=== PATIENT | female | born 1960 | race Caucasian/White ===

== ENCOUNTER 2019-04-20 06:54 | Day surgery (SDC) | payer MEDICARE, OTHER ==
[~2019-04-20 06:54] MED LIST: Lactated Ringers 1,000 ML IV SCH; Lidocaine 1%/Sod Bicarbonate in NS 8.4% 1 ML Syringe IDERM PRN; Sodium Chloride 0.9% 10 ML Syringe FLUSH PRN
--- NOTE | 2019-04-20 07:23 | PCM.PREANE ---
Preanesthetic Assessment - Procedure Proposed Procedure: EGD/Colonoscopy - Anesthesia/Transfusion/Family Hx Anesthesia History: Prior Anesthesia Without Reaction Family History of Anesthesia Reaction: No Transfusion History: No Prior Transfusion(s) - Review of Systems General: No Symptoms Pulmonary: No Symptoms Cardiovascular: Dyspnea on Exertion Gastrointestinal: No Symptoms Neurological: Tingling ("siatica"), Gait Disturbance ("bad foot") Other: Reports: Diabetes (check this am @ 97), Thyroid Problems (hypothyroid) - Physical Assessment NPO Status Date: 04/19/19 NPO Status Time: 00:00 Height: 1.55 m Weight: 99.79 kg ASA Class: 3 Mental Status: Alert & Oriented x3 Airway Class: Mallampati = 2 Dentition: Reports: Dentures Thyro-Mental Finger Breadths: 2 Mouth Opening Finger Breadths: 2 ROM/Head Extension: Full Lungs: Clear to Auscultation, Normal Respiratory Effort Cardiovascular: Regular Rate, Regular Rhythm - Allergies Allergies/Adverse Reactions: Allergies Allergy/AdvReac Type Severity Reaction Status Date / Time adalimumab [From Humira] Allergy Rash Verified 04/19/19 13:43 buspirone [From BuSpar] Allergy Cannot Verified 04/19/19 13:43 Remember cephalexin [From Keflex] Allergy Rash Verified 04/19/19 13:43 codeine Allergy Swelling Verified 04/19/19 13:43 atorvastatin [From Lipitor] AdvReac Muscle Verified 04/19/19 14:27 Aches fenofibrate [From Tricor] AdvReac Muscle Verified 04/19/19 14:27 Aches - Blood Blood Available: No Product(s) Available: None - Anesthesia Plan Pre-Op Medication Ordered: Beta Jose Beta Jose: Metoprolol Med Last Dose Date: 04/20/19 Med Last Dose Time: 05:30 - Acknowledgements Anesthesia Type Planned: MAC Pt an Appropriate Candidate for the Planned Anesthesia: Yes Alternatives and Risks of Anesthesia Discussed w Pt/Guardian: Yes Pt/Guardian Understands and Agrees with Anesthesia Plan: Yes PreAnesthesia Questionnaire HEENT History: Reports: Impaired Vision Cardiovascular History: Reports: CAD, Hypertension, SD Respiratory History: Reports: Sleep Apnea Gastrointestinal History: Reports: GERD, Hemorrhoids, Irritable Bowel Syndrome Genitourinary History: Reports: None 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: Musculoskeletal History: Reports: Osteoarthritis, Other (See Below) Other Musculoskeletal History: osteomyelitis Neurological History: Reports: Other (See Below) Other Neuro History: parkinsons like features Psychiatric History: Reports: Anxiety, Bipolar, Depression Endocrine/Metabolic History: Reports: Diabetes, Type II, Hypothyroidism Hematologic History: Reports: Anemia, Iron Deficiency Immunologic History: Reports: None Oncologic (Cancer) History: Reports: None Dermatologic History: Reports: None - Past Surgical History Head Surgeries/Procedures: Reports: None Cardiovascular Surgical History: Reports: Coronary Artery Bypass Respiratory Surgical History: Reports: None GI Surgical History: Reports: Colonoscopy, EGD Female Surgical History: Reports: Section Male Surgical History: Reports: None Endocrine Surgical History: Reports: None Neurological Surgical History: Reports: Other (See Below) Other Neurological Surgeries/Procedures: back surgery Musculoskeletal Surgical History: Reports: Knee Replacement, Other (See Below) Other Musculoskeletal Surgeries/Procedures:: bilateral foot surgery Oncologic Surgical History: Reports: None Dermatological Surgical History: Reports: None - SUBSTANCE USE Smoking Status *Q: Former Smoker Tobacco Use Within Last Twelve Months: No Second Hand Smoke Exposure: No Days Per Week of Alcohol Use: 0 Number of Drinks Per Day: 0 Total Drinks Per Week: 0 Recreational Drug Use History: No - HOME MEDS Home Medications: Home Meds Acetaminophen [Tylenol Arthritis] 650 mg PO Q8H PRN 04/19/19 [History] Aspirin 325 mg PO BID 04/19/19 [History] Calcium Carbonate/Vitamin D3 [Calcium 600 + Vit D 400 Softgl] 1 cap PO DAILY 11/28 [History] Carbidopa/Levodopa [Sinemet 25-100 mg Tablet] 1 each PO DAILY 04/19/19 [History] Dulaglutide [Trulicity] 0.75 mg SQ TH 04/19/19 [History] Escitalopram Oxalate 10 mg PO DAILY 04/19/19 [History] Folic Acid 2 mg PO DAILY 04/19/19 [History] Gabapentin [Neurontin] 600 mg PO TID 04/19/19 [History] Levothyroxine 75 mcg PO DAILY 04/19/19 [History] Losartan Potassium 25 mg PO DAILY 04/19/19 [History] Methotrexate Sodium [Methotrexate] 20 mg PO SA 04/19/19 [History] Metoprolol Tartrate 50 mg PO BID 04/19/19 [History] Multivitamin [Poly-Vitamin] 1 tab PO DAILY 04/19/19 [History] Nitroglycerin [Nitrostat] 0.4 mg PO ASDIRECTED PRN 04/19/19 [History] QUEtiapine Fumarate [Quetiapine Fumarate] 50 mg PO DAILY 04/19/19 [History] Ranitidine HCl [Ranitidine] 300 mg PO DAILY 04/19/19 [History] Rosuvastatin Calcium [Crestor] 40 mg PO BEDTIME 04/19/19 [History] estradioL [Estrace 0.01% Vaginal Crm] 1 dose VAG ASDIRECTED 04/19/19 [History] lamoTRIgine 200 mg PO DAILY 04/19/19 [History] - CURRENT (IN HOUSE) MEDS Current Meds: Current Medications Lactated Ringer's (Ringers, Lactated) 1,000 mls @ 125 mls/hr IV ASDIRECTED REMY Stop: 04/20/19 23:00 Lidocaine/Sodium Bicarbonate (Buffered Lidocaine 1% In Ns 8.4%) 0.25 ml IDERM ONETIME PRN PRN Reason: Prior to IV Start Stop: 04/20/19 18:00 Sodium Chloride (Saline Flush) 10 ml FLUSH ASDIRECTED PRN PRN Reason: Keep Vein Open Stop: 04/20/19 18:00
[2019-04-20] MEDS ORDERED: fentaNYL 100 MCG/2 ML SDV ONE (07:35)
[2019-04-20] MEDS ORDERED: Ondansetron 4 MG/2 ML SDV ONE (07:35)
[2019-04-20] MEDS ORDERED: Midazolam 1 MG/ML 2 ML SDV ONE (07:35)
[2019-04-20] MEDS ORDERED: Propofol 200 MG/20 ML SDV ONE ×3 (07:35→08:49)
[2019-04-20] MEDS ORDERED: Lidocaine 1% 4 ML ONE (07:36)
--- NOTE | 2019-04-20 09:18 | PCM.OPNOTE ---
- General Post-Op/Procedure Note Date of Surgery/Procedure: 04/20/19 Operative Procedure(s): EGD and colonoscopy Findings: 1. Duodenitis 2. Gastritis with superficial erosion and hemorrhage 3. Bile reflux 4. Irregular GE junction 5. Diverticulosis Pre Op Diagnosis: Iron deficiency Post-Op Diagnosis: Same Anesthesia Technique: CHAYITO Primary Surgeon: Cyndi Cole Anesthesia Provider: Tom Wheeler Pathology: 1. Duodenal biopsy 2. Antrum biopsy 3. GE junction biopsy Fluid Replacement, Intraop: 900 Output, Urine Amount: 0 EBL in mLs: 0 Complications: none apparent Condition: Good
--- NOTE | 2019-04-20 09:19 | PCM.PRNOTE ---
- Free Text/Narrative Note: Operative Report Date of Procedure: April 20, 2019 Pre Op Diagnosis: Iron deficiency Post-Op Diagnosis: Same Operative Procedures: 1. EGD with biopsy 2. Colonoscopy to the cecum Primary Surgeon: Cyndi Cole MD Anesthesia Provider: Tom Wheeler CRNA Anesthesia Technique: MAC IV Fluid Replacement, Intraop: 900cc crystalloid Output, Urine Amount: 0cc EBL in mLs: 0cc Findings: 1. Duodenitis 2. Gastritis with superficial erosion and hemorrhage 3. Bile reflux 4. Irregular GE junction 5. Diverticulosis Specimens: 1. Duodenal biopsy 2. Antrum biopsy 3. GE junction biopsy Drain/Tubes: None Indication: The patient is a 59-year-old lady who presented to the clinic with findings of iron deficiency. The patient was consented for a diagnostic EGD and colonoscopy. Risks of bleeding, and perforation were discussed, and the patient agreed to the risks and wished to proceed. Description of the procedure: The patient was taken back to the endoscopy suite, and placed in the left lateral decubitus position. Local anesthetic to the oropharynx was administered , and a bite block was placed. The patient was sedated with MAC anesthesia. The Olympus video endoscope was inserted into the oropharynx and guided under direct vision into the esophagus, stomach, and duodenum. The duodenal bulb and second portion of the duodenum were remarkable for erythema with friability in the duodenal bulb. Biopsies were taken in the second portion of the duodenum and duodenal bulb with a cold biopsy forceps. The gastric antrum was inspected and cold biopsy forceps were used to take tissue samples for H. pylori. There was erythema noted in the antrum and distal body of the stomach consistent with gastritis the scope was withdrawn to the stomach and retroflexed. There was increased bilious fluid consistent with bile reflux, this was suctioned. There were 2 areas of superficial erosion in the cardia of the stomach. There was a small amount of active hemorrhage in these 2 areas. No ulcers were noted. The scope was withdrawn to the esophagus. A this point we did not note any hiatal hernia. The GE junction appeared irregular with tissue changes that looked consistent with inflammation. Biopsies taken at the GE junction in 4 quadrants for histology using a cold biopsy forceps. No specific Barretts esophagus changes were noted. The endoscope was then withdrawn. Next, anorectal examination was performed. No lesions, masses or hemorrhoids were noted externally or on palpation. The scope was placed into the rectum and advanced to cecum. Upon reaching the cecum, and the patients cecum was entered. There was moderate tortuosity of the colon with significant looping of the scope requiring change in patient position to supine and abdominal manual pressure. The ileocecal valve was well visualized and the appendiceal orifice identified. At this point, the scope was slowly withdrawn, paying attention to the mucosa. The patient had adequate bowel prep, 85-90% of the mucosa was visible after washing and suctioning. Diffuse diverticulosis was noted extending into the ascending colon. In the rectum, scope was retroflexed and some hemorrhoidal tissue was noted. The scope was placed back in the lumen and excess air was aspirated. The scope was removed. The patient tolerated the procedure very well. Complications: None apparent Condition: The patient was transported to PACU in stable condition. Cyndi Cole MD General Surgery
--- NOTE | 2019-04-20 09:20 | PCM48HPAN ---
Post Anesthesia Note - EVALUATION WITHIN 48HRS OF ANESTHETIC Vital Signs in Normal Range: Yes Patient Participated in Evaluation: Yes Respiratory Function Stable: Yes Airway Patent: Yes Cardiovascular Function Stable: Yes Hydration Status Stable: Yes Pain Control Satisfactory: Yes Nausea and Vomiting Control Satisfactory: Yes Mental Status Recovered: Yes Vital Signs: Last Vital Signs Temp 36.3 C 04/20/19 07:10 Pulse 63 04/20/19 07:10 Resp 20 04/20/19 07:10 BP 117/81 04/20/19 07:10 Pulse Ox 95 04/20/19 07:10 - COMMENTS/OBSERVATIONS Free Text/Narrative:: no anesthesia complications noted
== END 2019-04-20 10:15 | disposition home or self-care (01) ==
LOC: JD.SDS 06:54
PROVIDERS: ATTEND Surgery
DX: K57.30 Diverticulosis of large intestine without perforation or abscess without bleeding (principal); K29.80 Duodenitis without bleeding; E61.1 Iron deficiency; K25.4 Chronic or unspecified gastric ulcer with hemorrhage; K29.51 Unspecified chronic gastritis with bleeding; K64.9 Unspecified hemorrhoids; K31.89 Other diseases of stomach and duodenum; K22.8 Other specified diseases of esophagus; K21.0 Gastro-esophageal reflux disease with esophagitis; I25.10 Atherosclerotic heart disease of native coronary artery without angina pectoris; I10 Essential (primary) hypertension; E78.2 Mixed hyperlipidemia; E03.9 Hypothyroidism, unspecified; E78.5 Hyperlipidemia, unspecified; M06.9 Rheumatoid arthritis, unspecified; E11.9 Type 2 diabetes mellitus without complications; Z88.5 Allergy status to narcotic agent; Z87.19 Personal history of other diseases of the digestive system; Z88.8 Allergy status to other drugs, medicaments and biological substances; Z88.1 Allergy status to other antibiotic agents; Z79.899 Other long term (current) drug therapy; Z87.891 Personal history of nicotine dependence; Z79.890 Hormone replacement therapy
CPT/HCPCS: 82962; J2001; J2250; J2405; J2704; J3010; J7120

== ENCOUNTER 2020-05-29 23:49 | Emergency (ER) | payer MEDICARE, OTHER ==
--- NOTE | 2020-05-30 00:35 | EDM.PDOC ---
ED HPI GENERAL MEDICAL PROBLEM - General Chief Complaint: Chest Pain Stated Complaint: yon/karol bueno Time Seen by Provider: 05/29/20 23:58 Source of Information: Reports: Patient History Limitations: Reports: No Limitations - History of Present Illness INITIAL COMMENTS - FREE TEXT/NARRATIVE: Mrs. Mcghee is a pleasant 60-year-old woman who is now brought to the ED by EMS after developing sudden-onset entire left upper extremity pain, that radiated to the left side of her neck, along with a headache felt in her left frontal area and left ear, associated with nausea, dyspnea, and diaphoresis, around 22:30 this evening. She states that she took a single sublingual nitroglycerin around 22:40, with complete resolution of her symptoms around 10 minutes later. None of her symptoms have returned. She now feels completely back to normal. The patient states that she had similar symptoms in 2018 that resolved after about an hour, after she went to the ED. She does not know if she received any medications that may have contributed to the resolution of her symptoms. She recalls that she was told that her symptoms were due to anxiety. The patient also reports that she has a history of coronary artery disease, status post an NJ in 2005. At that time, her symptoms included left-sided chest pain that radiated down her entire left upper extremity, however, the patient acknowledges that jessie's symptoms are distinctly different than the symptoms she experienced when she had an NJ in 2006. [facility], the patient's initial BP is found to be slightly elevated at 139/97, otherwise, she was hemodynamically stable, afebrile, saturating 97% on room air. [facility], the patient denies having a recent fever, chills, sore throat, ear pain, nasal or sinus congestion, cough, dyspnea, chest pain, palpitations, nausea, vomiting, constipation, diarrhea, abdominal pain, urinary symptoms, recent weight gain or weight loss, recent bloody bowel movements or black bowel movements, recent joint aches, headaches, or rashes. The patient's PCP is Dr. Navya Maher, from [place]. Her cardiology midlevel is Lilian Clayton NP, who works with Dr. Areli Wilson. Her psychiatric counselor is Tressa Villarreal NP, in [place]. - Related Data Allergies Allergy/AdvReac Type Severity Reaction Status Date / Time adalimumab [From Humira] Allergy Rash Verified 05/29/20 23:52 buspirone [From BuSpar] Allergy Cannot Verified 05/29/20 23:52 Remember cephalexin [From Keflex] Allergy Rash Verified 05/29/20 23:52 codeine Allergy Swelling Verified 05/29/20 23:52 atorvastatin [From Lipitor] AdvReac Muscle Verified 05/29/20 23:52 Aches fenofibrate [From Tricor] AdvReac Muscle Verified 05/29/20 23:52 Aches Home Meds: Home Meds Acetaminophen [Tylenol Arthritis] 650 mg PO Q8H PRN 04/19/19 [History] Aspirin 325 mg PO BID 04/19/19 [History] Calcium Carbonate/Vitamin D3 [Calcium 600Mg-D3 400 Unit Sfgl] 1 cap PO DAILY 04/19/19 [History] Carbidopa/Levodopa [Sinemet 25-100 mg Tablet] 1 each PO DAILY 04/19/19 [History] Dulaglutide [Trulicity] 0.75 mg SQ TH 04/19/19 [History] Escitalopram Oxalate 10 mg PO DAILY 04/19/19 [History] Folic Acid 2 mg PO DAILY 04/19/19 [History] Gabapentin [Neurontin] 600 mg PO TID 04/19/19 [History] Levothyroxine 75 mcg PO DAILY 04/19/19 [History] Losartan Potassium 25 mg PO DAILY 04/19/19 [History] Metoprolol Tartrate 50 mg PO BID 04/19/19 [History] Multivitamin [Poly-Vitamin] 1 tab PO DAILY 04/19/19 [History] Nitroglycerin [Nitrostat] 0.4 mg PO ASDIRECTED PRN 04/19/19 [History] QUEtiapine Fumarate [Quetiapine Fumarate] 50 mg PO DAILY 04/19/19 [History] Ranitidine HCl [Ranitidine] 300 mg PO DAILY 04/19/19 [History] Rosuvastatin Calcium [Crestor] 40 mg PO BEDTIME 04/19/19 [History] estradioL [Estrace 0.01% Vaginal Crm] 1 dose VAG ASDIRECTED 04/19/19 [History] lamoTRIgine 200 mg PO DAILY 04/19/19 [History] metHOTREXate sodium [Methotrexate] 20 mg PO SA 04/19/19 [History] Past Medical History HEENT History: Reports: Impaired Vision (wears glasses) Cardiovascular History: Reports: CAD, High Cholesterol, Hypertension, NJ (x 1, 2006) Respiratory History: Reports: Sleep Apnea (noncompliant with CPAP) Gastrointestinal History: Reports: Colon Polyp, Diverticulosis (diverticulitis), GERD, Hemorrhoids, Irritable Bowel Syndrome Genitourinary History: Reports: Urinary Incontinence (stress incontinence) Musculoskeletal History: Reports: RA Psychiatric History: Reports: Anxiety, Bipolar, Depression Endocrine/Metabolic History: Reports: Diabetes, Type II, Hypothyroidism, Obesity/BMI 30+ - Infectious Disease History Infectious Disease History: Reports: MRSA - Past Surgical History HEENT Surgical History: Reports: Oral Surgery (dental extractions) Cardiovascular Surgical History: Reports: Coronary Artery Bypass (x 2 vessel, 2006) GI Surgical History: Reports: Colonoscopy (x 2), EGD (x 1) Female Surgical History: Reports: Section (x 3) Neurological Surgical History: Reports: Lumbar Spine (fusion) Musculoskeletal Surgical History: Reports: Amputation (right BKA), Arthroscopic Knee (left, x 3), Knee Replacement (left) Social & Family History - Tobacco Use Tobacco Use Status *Q: Former Tobacco User Years of Tobacco use: 18 Packs/Tins Daily: 1 Month/Year Tobacco Last Used: Quit 2014 Tobacco Use Comment: Started smoking at 36 yrs old - Caffeine Use Caffeine Use: Reports: Soda - Alcohol Use Alcohol Use History: No - Recreational Drug Use Recreational Drug Use: Yes Drug Use in Last 12 Months: Yes Recreational Drug Type: Reports: Marijuana/Hashish (smokes 3 times a week) - Living Situation & Occupation Living situation: Reports: , with Spouse Occupation: Retired ED ROS GENERAL - Review of Systems Review Of Systems: Comprehensive ROS is negative, except as noted in HPI. ED EXAM, GENERAL - Physical Exam Exam: See Below Exam Limited By: No Limitations General Appearance: Alert, WD/WN, No Apparent Distress Eye Exam: Bilateral Eye: EOMI, Normal Inspection Ears: Normal External Exam, Hearing Grossly Normal Nose: Normal Inspection Throat/Mouth: Normal Inspection, Normal Lips, Normal Voice, No Airway Compromise Head: Atraumatic, Normocephalic Neck: Normal Inspection, Full Range of Motion Respiratory/Chest: No Respiratory Distress, Lungs Clear, Normal Breath Sounds, No Accessory Muscle Use, Chest Non-Tender Cardiovascular: Normal Peripheral Pulses, Regular Rate, Rhythm, No Gallop, No JVD, No Murmur, No Rub Peripheral Pulses: 3+: Radial (L), Radial (R) GI/Abdominal: Normal Bowel Sounds, Soft, Non-Tender, No Organomegaly, No Distention, No Abnormal Bruit, No Mass Back Exam: Normal Inspection, Full Range of Motion, NT Extremities: Normal Inspection, Normal Range of Motion, Non-Tender (LUE), Normal Capillary Refill Neurological: Alert, Oriented, Normal Cognition, No Motor/Sensory Deficits Psychiatric: Normal Affect Skin Exam: Warm, Dry, Intact, Normal Color, No Rash #1 Interpretation EKG Date: 05/29/20 Time: 23:53 Rhythm: NSR Rate (Beats/Min): 69 [place]: Normal P-Wave: Present (Borderline 1st degree AVB) QRS: Normal ST-T: Normal QT: Normal Comparison: NA - No Prior EKG Course - Vital Signs Last Recorded V/S: Last Vital Signs Temp 35.9 C L 05/29/20 23:52 Pulse 89 05/29/20 23:52 Resp 16 05/29/20 23:52 BP 139/97 H 05/29/20 23:52 Pulse Ox 97 05/29/20 23:52 - Orders/Labs/Meds Orders: Active Orders 24 hr Category Date Time Status Chest 2V [CR] Stat Exams 05/30/20 00:28 Taken Labs: Laboratory Tests 05/30/20 05/30/20 05/30/20 Range/Units 00:40 00:40 00:40 WBC 10.51 H (3.98-10.04) K/mm3 RBC 4.23 (3.98-5.22) M/mm3 Hgb 13.0 (11.2-15.7) gm/dl Hct 41.9 (34.1-44.9) % MCV 99.1 H (79.4-94.8) fl MCH 30.7 (25.6-32.2) pg MCHC 31.0 L (32.2-35.5) g/dl RDW Std Deviation 54.6 H (36.4-46.3) fL Plt Count 252 (182-369) K/mm3 MPV 9.7 (9.4-12.3) fl Neutrophils % (Manual) 66 H (40-60) % Band Neutrophils % 0 (0-10) % Lymphocytes % (Manual) 23 (20-40) % Atypical Lymphs % 0 % Monocytes % (Manual) 8 (2-10) % Eosinophils % (Manual) 3 (0.7-5.8) % Basophils % (Manual) 0 L (0.1-1.2) Platelet Estimate Adequate RBC Morph Comment Normal D-Dimer, Quantitative 0.36 (0.19-0.50) mg/L Sodium 142 (136-145) mEq/L Potassium 4.1 (3.5-5.1) mEq/L Chloride 104 (98-107) mEq/L Carbon Dioxide 29 (21-32) mEq/L Anion Gap 13.1 (5-15) BUN 14 (7-18) mg/dL Creatinine 0.9 (0.55-1.02) mg/dL Est Cr Clr Drug Dosing 50.16 mL/min Estimated GFR (MDRD) > 60 (>60) mL/min BUN/Creatinine Ratio 15.6 (14-18) Glucose 171 H (74-106) mg/dL Calcium 8.8 (8.5-10.1) mg/dL Magnesium 2.3 (1.8-2.4) mg/dl Total Bilirubin 0.2 (0.2-1.0) mg/dL AST 25 (15-37) U/L ALT 33 (14-59) U/L Alkaline Phosphatase 121 H (46-116) U/L Troponin I < 0.017 (0.00-0.056) ng/mL NT-Pro-B Natriuret Pep (0-125) pg/mL Total Protein 7.3 (6.4-8.2) g/dl Albumin 3.6 (3.4-5.0) g/dl Globulin 3.7 gm/dL Albumin/Globulin Ratio 1.0 (1-2) SARS-CoV-2 RNA (MICHAEL) (NEGATIVE) 05/30/20 05/30/20 05/30/20 Range/Units 00:40 00:59 02:30 WBC (3.98-10.04) K/mm3 RBC (3.98-5.22) M/mm3 Hgb (11.2-15.7) gm/dl Hct (34.1-44.9) % MCV (79.4-94.8) fl MCH (25.6-32.2) pg MCHC (32.2-35.5) g/dl RDW Std Deviation (36.4-46.3) fL Plt Count (182-369) K/mm3 MPV (9.4-12.3) fl Neutrophils % (Manual) (40-60) % Band Neutrophils % (0-10) % Lymphocytes % (Manual) (20-40) % Atypical Lymphs % % Monocytes % (Manual) (2-10) % Eosinophils % (Manual) (0.7-5.8) % Basophils % (Manual) (0.1-1.2) Platelet Estimate RBC Morph Comment D-Dimer, Quantitative (0.19-0.50) mg/L Sodium (136-145) mEq/L Potassium (3.5-5.1) mEq/L Chloride (98-107) mEq/L Carbon Dioxide (21-32) mEq/L Anion Gap (5-15) BUN (7-18) mg/dL Creatinine (0.55-1.02) mg/dL Est Cr Clr Drug Dosing mL/min Estimated GFR (MDRD) (>60) mL/min BUN/Creatinine Ratio (14-18) Glucose (74-106) mg/dL Calcium (8.5-10.1) mg/dL Magnesium (1.8-2.4) mg/dl Total Bilirubin (0.2-1.0) mg/dL AST (15-37) U/L ALT (14-59) U/L Alkaline Phosphatase (46-116) U/L Troponin I < 0.017 (0.00-0.056) ng/mL NT-Pro-B Natriuret Pep 70 (0-125) pg/mL Total Protein (6.4-8.2) g/dl Albumin (3.4-5.0) g/dl Globulin gm/dL Albumin/Globulin Ratio (1-2) SARS-CoV-2 RNA (MICHAEL) Negative (NEGATIVE) - Re-Assessments/Exams Free Text/Narrative Re-Assessment/Exam: 05/30/20 00:30 As above, the patient developed sudden-onset left upper extremity pain radiating to the left side of her neck, along with the left-sided headache, nausea, diaphoresis, and dyspnea, around 22:30 tonight, which resolved about 10 minutes after she took a sublingual nitroglycerin around 22:40. While her symptoms are concerning for a cardiac etiology, she did not experience any chest discomfort, and she states that her symptoms were different than when she suffered an NJ in 2006. Her ECG at triage shows no ischemic changes, and her physical exam is unremarkable. I have ordered a work-up that includes several blood tests, a chest x-ray, and, in case she needs to be admitted, a swab for the SARS-CoV-2 virus. 05/30/20 02:16 Two-view chest radiograph reviewed. The cardiac silhouette is within normal limits. No pulmonary vascular congestion. No pleural effusions. No focal infiltrate. No pneumothorax. Elevated right hemidiaphragm may be a physiologic variant. There are numerous sternotomy wires, most, if not all, of which appear to be broken. Formal read per the Radiologist pending. The patient's CBC is remarkable for mild leukocytosis of 10.51, but with 0% bandemia, and the remainder of her CBC being unremarkable. Her CMP is remarkable for hyperglycemia of 171, and an alkaline phosphatase s lightly elevated at 121, with the remainder of her CMP being unremarkable. Her magnesium level is within normal limits at 2.3. Her troponin is undetectably low. Her D-dimer is within normal limits at 0.36. Her pro-BNP is within normal limits at 70. Her swab for the SARS-CoV-2 virus is negative. It has been nearly 4 hours since the onset of the patient's symptoms; I have ordered a repeat troponin. 05/30/20 03:22 The patient's repeat troponin remains undetectably low. Although I cannot be certain, I suspect that the symptoms that the patient experienced tonight are related to a migraine headache. I will discharge her home. Departure - Departure Time of Disposition: 03:23 Disposition: Home, Self-Care 01 Condition: Good Clinical Impression: Left arm pain, Headache - Discharge Information *PRESCRIPTION DRUG MONITORING PROGRAM REVIEWED*: Not Applicable *COPY OF PRESCRIPTION DRUG MONITORING REPORT IN PATIENT JAGJIT: Not Applicable Instructions: General Headache Without Cause Referrals: Navya Maher MD [Ordering Only Provider] - Lilian Clayton NP [Ordering Only Provider] - Forms: ED Department Discharge Additional Instructions: You were seen in the emergency room after developing entire left arm pain, radiating to the left side of her neck, along with a left-sided headache, nausea, shortness of breath, and sweatiness. Work-up in the ER included numerous blood tests, a chest x-ray, a swab for the SARS-CoV-2 virus, and an ECG. Your work-up found your blood sugar to be modestly elevated at 171, otherwise, your entire work-up was unremarkable. You have not suffered a heart attack. The exact cause of your symptoms is not known, however, may have been due to a brief migraine. We recommend that you follow-up with your PCP, Dr. Navya Maher, at the next available appointment. If any other problems, please do not hesitate to return to the ER. Sepsis Event Note (ED) - Evaluation Sepsis Screening Result: No Definite Risk - Focused Exam Vital Signs: Vital Signs Temp Pulse Resp BP Pulse Ox 05/29/20 23:52 35.9 C L 89 16 139/97 H 97 - My Orders Last 24 Hours: My Active Orders 05/30/20 00:28 Chest 2V [CR] Stat - Assessment/Plan Last 24 Hours: My Active Orders 05/30/20 00:28 Chest 2V [CR] Stat
--- NOTE | 2020-05-30 08:17 | CR ---
Chest: 2 views of the chest were obtained. Comparison: No prior study. Heart size and mediastinum are within normal limits. Sternotomy wires are seen which show multiple fracturing of the wires. Lungs are clear with no acute parenchymal change. Minimal scattered degenerative change is noted within the spine. Impression: 1. Findings as noted above. 2. Nothing acute is appreciated on 2 view chest x-ray. Diagnostic code #2
== END 2020-05-30 04:37 | disposition home or self-care (01) ==
LOC: JD.ED 23:49
DX: M79.602 Pain in left arm (principal); R51.9 Headache, unspecified; I25.10 Atherosclerotic heart disease of native coronary artery without angina pectoris; E78.00 Pure hypercholesterolemia, unspecified; I10 Essential (primary) hypertension; M06.9 Rheumatoid arthritis, unspecified; E11.9 Type 2 diabetes mellitus without complications; E03.9 Hypothyroidism, unspecified; E66.9 Obesity, unspecified; Z87.891 Personal history of nicotine dependence; Z68.37 Body mass index [BMI] 37.0-37.9, adult; Z88.8 Allergy status to other drugs, medicaments and biological substances; Z88.1 Allergy status to other antibiotic agents; Z88.5 Allergy status to narcotic agent; Z79.82 Long term (current) use of aspirin; Z79.899 Other long term (current) drug therapy; Z20.822 Contact with and (suspected) exposure to COVID-19
CPT/HCPCS: 36415; 71046; 80053; 83735; 83880; 84484; 85007; 85027; 85379; 93005; 99285; U0002; 93010; 99283

== ENCOUNTER 2021-11-04 12:11 | Emergency (ER) | payer MEDICARE, MEDICAID ==
[2021-11-04] MEDS ORDERED: Nitroglycerin 0.4 MG Tab.SL SL PRN (12:41)
[2021-11-04] MEDS ORDERED: Aspirin 81 MG Tab.Chew PO ONE (12:41)
[2021-11-04] MEDS ORDERED: Sodium Chloride 0.9% 1,000 ML IV SCH (12:45)
[2021-11-04] MEDS ORDERED: Isosorbide Mononitrate 30 MG Tab.ER PO ONE (17:14)
== END 2021-11-04 17:40 | disposition home or self-care (01) ==
LOC: JD.ED 12:11
DX: I20.9 Angina pectoris, unspecified (principal); I25.10 Atherosclerotic heart disease of native coronary artery without angina pectoris; E03.9 Hypothyroidism, unspecified; E78.00 Pure hypercholesterolemia, unspecified; I10 Essential (primary) hypertension; I25.2 Old myocardial infarction; E11.9 Type 2 diabetes mellitus without complications; E66.9 Obesity, unspecified; Z68.41 Body mass index [BMI] 40.0-44.9, adult; Z88.5 Allergy status to narcotic agent; Z88.8 Allergy status to other drugs, medicaments and biological substances; Z79.899 Other long term (current) drug therapy; Z88.6 Allergy status to analgesic agent
CPT/HCPCS: 36415; 71045; 71045-26; 80053; 84484; 85025; 85379; 85610; 85730; 93005; 93010; 96360; 96361; 99284; 99285-25; A9270-GY; J7030

== ENCOUNTER 2021-11-14 23:12 | Emergency (ER) | payer MEDICARE, MEDICAID ==
[2021-11-15 01:00] LABS: ESTIMATED GFR 84 mL/min (>60)
== END 2021-11-15 05:00 | disposition home or self-care (01) ==
LOC: JD.ED 23:12
DX: M79.602 Pain in left arm (principal); E11.9 Type 2 diabetes mellitus without complications; I25.2 Old myocardial infarction
CPT/HCPCS: 36415; 71045; 71045-26; 80053; 81001; 84484; 85025; 93005; 99284